=== PATIENT | female | born 1950 | race Caucasian/White ===

== ENCOUNTER 2022-08-12 18:04 | Inpatient (IN) | payer BC ==
[~2022-08-12] VITALS: Ht 172.7 cm; Wt 88.5 kg
[2022-08-12 18:05] VITALS: BP_SYST 134
[2022-08-12] MEDS ORDERED: ALBUTEROL SULFATE 0.083% 2.5 MG/3 ML VIAL.NEB INH ONE ×2 (18:15→21:15)
[2022-08-12] MEDS ORDERED: ACETAMINOPHEN 325 MG TABLET PO ONE (18:15)
[2022-08-12] MEDS ORDERED: IPRATROPIUM BROM 0.5 MG/2.5 ML VIAL.NEB (ATROVENT) INH ONE (18:15)
[2022-08-12 19:02] LABS: BASOPHILS % (AUTO) 0.2 % (0.0-2.0); EOSINOPHILS # (AUTO) 0.1 K/uL (0.0-0.4); EOSINOPHILS % (AUTO) 1.3 % (0.0-4.0); HEMATOCRIT 47.6 % (36-48); HEMOGLOBIN 16.1 g/dL (12.0-16.0); LYMPHOCYTES # (AUTO) 1.2 K/uL (1.0-5.5); LYMPHOCYTES % (AUTO) 20.6 % (20.5-51.5); MEAN CORPUSCULAR HEMOGLOBIN 32 pg (27-31); MEAN CORPUSCULAR HGB CONC 34 % (32-36); MEAN CORPUSCULAR VOLUME 94 fL (79.0-98.0); MONOCYTES # (AUTO) 0.9 K/uL (0.0-1.0); MONOCYTES % (AUTO) 14.8 % (1.7-9.3); NEUTROPHILS # (AUTO) 3.7 K/uL (1.8-7.7); NEUTROPHILS % (AUTO) 63.1 % (40.0-70.0); PLATELET COUNT (AUTO) 241 K/uL (130-430); RED BLOOD CELL COUNT(AUTO) 5.06 MIL/uL (4.2-6.2); RED CELL DISTRIBUTION WIDTH 14.9 % (9.0-15.0); WHITE BLOOD COUNT (AUTO) 5.8 K/uL (4.8-10.8)
[2022-08-12 20:06] LABS: ANION GAP 11 (5-15); CALCIUM 9.4 mg/dL (8.4-11.0); CHLORIDE 99 mmol/L (98-107); CREATININE 0.75 mg/dL (0.55-1.30); GLUCOSE 83 mg/dL (70-99); UREA NITROGEN, BLOOD 11 mg/dL (8-21)
[2022-08-12 20:13] LABS: ALANINE AMINOTRANSFERASE 22 U/L (12-78); ALBUMIN 2.6 g/dL (3.4-4.8); ASPARTATE AMINOTRANSFERASE 41 U/L (10-37); TOTAL BILIRUBIN 0.6 mg/dL (0.0-1.0)
[2022-08-12] MEDS ORDERED: methylPREDNISolone SOD SUCC/PF 62.5 MG/ML VIAL IM ONE (21:15)
[2022-08-12] MEDS ORDERED: KETOROLAC TROMETHAMINE 30 MG VIAL IVP ONE (21:45)
[2022-08-12 22:38] LABS: BILIRUBIN,URINE NEGATIVE (NEGATIVE); CLARITY/URINE SL CLOUDY (CLEAR); COLOR,URINE YELLOW (YELLOW); GLUCOSE,URINE NEGATIVE (NEGATIVE); KETONES,URINE 1+ (NEGATIVE); LEUKOCYTE ESTERASE ,URINE 1+ (NEGATIVE); NITRITE, URINE POSITIVE (NEGATIVE); PROTEIN URINE TRACE (NEGATIVE)
[2022-08-12 22:48] LABS: BLOOD, URINE TRACE (NEGATIVE)
[2022-08-12 22:51] LABS: BACTERIA,URINE MANY /HPF (None Seen); WBC,URINE >100 /HPF (0-3)
[2022-08-12] MEDS ORDERED: NACL 0.9% 1,000 ML IV ONE (23:00)
[2022-08-12] MEDS ORDERED: AMLO5TAB4 PO (23:27)
[2022-08-12] MEDS ORDERED: NEU300 PO (23:27)
[2022-08-12] MEDS ORDERED: NAPR-688 PO (23:27)
[2022-08-13 00:02] VITALS: BP_SYST 111
[2022-08-13 00:38] VITALS: BP_SYST 134
[2022-08-13] MEDS ORDERED: MUPIROCIN 2% TOPICAL OINTMENT 22 GM NS PRN (06:45)
[2022-08-13] MEDS ORDERED: ONDANSETRON HCL 4 MG/2 ML VIAL IVP PRN (06:45)
[2022-08-13] MEDS ORDERED: MAGNESIUM SULFATE 50 ML IV PRN (06:45)
[2022-08-13] MEDS ORDERED: MORPHINE 2 MG/ML INJ. SYRINGE IVP PRN ×2 (06:45)
[2022-08-13] MEDS ORDERED: ACETAMINOPHEN 325 MG TABLET PO PRN ×2 (06:45→07:00)
[2022-08-13] MEDS ORDERED: POTASSIUM CHLORIDE 20 MEQ TAB.PRT.SR PO PRN (06:45)
[2022-08-13] MEDS ORDERED: LORazepam 2 MG/ML VIAL IVP PRN (06:45)
[2022-08-13] MEDS ORDERED: DOCUSATE SODIUM 100 MG CAPSULE PO PRN (06:45)
[2022-08-13] MEDS ORDERED: NALOXONE HCL 0.4 MG/ML AMP (NARCAN) IVP PRN ×2 (06:45)
[2022-08-13] MEDS: IPRATROPIUM BROM 0.5 MG/2.5 ML VIAL.NEB (ATROVENT) INH SCH ×5 (07:00→23:36)
[2022-08-13 08:00] VITALS: BP_SYST 110
[2022-08-13] MEDS ORDERED: GABAPENTIN 300 MG CAPSULE PO SCH (09:00)
[2022-08-13] MEDS: amLODIPine BESYLATE 5 MG TABLET PO SCH (10:09)
[2022-08-13] MEDS: cefTRIAXone 1 GM in D5W 50 ML IV SCH (10:50)
[2022-08-13] MEDS: AZITHROMYCIN 500 MG in NS 250 ML IV SCH (10:57)
[2022-08-13 12:00] VITALS: BP_SYST 119
[2022-08-13] MEDS: methylPREDNISolone SOD SUCC/PF 62.5 MG/ML VIAL IVP SCH ×2 (15:01→21:26)
[2022-08-13 17:26] VITALS: BP_SYST 127
[2022-08-13 17:33] LABS: BARBITURATE, URINE NEGATIVE (NEG <=200); BENZODIAZEPINE, URINE NEGATIVE (NEG <=150); CANNABINOID, URINE NEGATIVE (NEG <=50); COCAINE, URINE NEGATIVE (NEG <=150); METHAMPHETAMINES SCREEN,URINE NEGATIVE (NEG <=500); OPIATE, URINE NEGATIVE (NEG <=100); PHENCYCLIDINE SCREEN,URINE NEGATIVE (NEG <=25); UR TRICYCLIC ANTIDEPRESSANTS NEGATIVE (NEG <=300); URINE AMPHETAMINE NEGATIVE (NEG <=500); URINE METHADONE NEGATIVE (NEG <=200); URINE OXYCODONE SCREEN NEGATIVE (NEG <=100); URINE PROPOXYPHENE SCREEN NEGATIVE (NEG <=300)
[2022-08-13 19:50] VITALS: BP_SYST 110
[2022-08-13] MEDS: ALBUTEROL SULFATE 0.083% 2.5 MG/3 ML VIAL.NEB INH PRN (20:01)
[2022-08-14 00:18] VITALS: BP_SYST 105
[2022-08-14] MEDS: ALBUTEROL SULFATE 0.083% 2.5 MG/3 ML VIAL.NEB INH PRN (03:01)
[2022-08-14] MEDS: IPRATROPIUM BROM 0.5 MG/2.5 ML VIAL.NEB (ATROVENT) INH SCH ×4 (03:02→14:44)
[2022-08-14] MEDS: methylPREDNISolone SOD SUCC/PF 62.5 MG/ML VIAL IVP SCH ×3 (06:33→22:30)
[2022-08-14 07:53] LABS: BASOPHILS % (AUTO) 0.1 % (0.0-2.0); HEMATOCRIT 41.2 % (36-48); LYMPHOCYTES # (AUTO) 0.5 K/uL (1.0-5.5); LYMPHOCYTES % (AUTO) 6.9 % (20.5-51.5); MEAN CORPUSCULAR HEMOGLOBIN 32 pg (27-31); MEAN CORPUSCULAR HGB CONC 34 % (32-36); MEAN CORPUSCULAR VOLUME 94 fL (79.0-98.0); MONOCYTES # (AUTO) 0.5 K/uL (0.0-1.0); MONOCYTES % (AUTO) 6.5 % (1.7-9.3); NEUTROPHILS # (AUTO) 6.5 K/uL (1.8-7.7); NEUTROPHILS % (AUTO) 86.5 % (40.0-70.0); PLATELET COUNT (AUTO) 267 K/uL (130-430); RED BLOOD CELL COUNT(AUTO) 4.37 MIL/uL (4.2-6.2); RED CELL DISTRIBUTION WIDTH 14.8 % (9.0-15.0)
[2022-08-14 07:56] LABS: ANION GAP 8 (5-15); CALCIUM 9.2 mg/dL (8.4-11.0); CHLORIDE 102 mmol/L (98-107); CREATININE 0.62 mg/dL (0.55-1.30); GLUCOSE 150 mg/dL (70-99); UREA NITROGEN, BLOOD 12 mg/dL (8-21)
[2022-08-14 08:00] VITALS: BP_SYST 106
[2022-08-14] MEDS: cefTRIAXone 1 GM in D5W 50 ML IV SCH (08:41)
[2022-08-14 09:21] LABS: WHITE BLOOD COUNT (AUTO) 7.5 K/uL (4.8-10.8)
[2022-08-14] MEDS: ENOXAPARIN SODIUM 40 MG/0.4 ML SYRINGE SUBCUT SCH (09:46)
[2022-08-14] MEDS: amLODIPine BESYLATE 5 MG TABLET PO SCH (09:46)
[2022-08-14 09:49] VITALS: BP_SYST 114
[2022-08-14 11:39] VITALS: BP_SYST 116
[2022-08-14] MEDS: AZITHROMYCIN 500 MG in NS 250 ML IV SCH (13:16)
[2022-08-14] MEDS ORDERED: IPRATROPIUM BROM 0.5 MG/2.5 ML VIAL.NEB (ATROVENT) INH PRN (15:00)
[2022-08-14 17:00] VITALS: BP_SYST 110
[2022-08-14 20:00] VITALS: BP_SYST 114
[2022-08-15] VITALS: BP_SYST 108; BP_SYST 126
[2022-08-15] MEDS: methylPREDNISolone SOD SUCC/PF 62.5 MG/ML VIAL IVP SCH ×2 (06:02→13:31)
[2022-08-15 07:15] LABS: HEMATOCRIT 43.8 % (36-48); HEMOGLOBIN 14.8 g/dL (12.0-16.0); LYMPHOCYTES # (AUTO) 0.6 K/uL (1.0-5.5); LYMPHOCYTES % (AUTO) 6.7 % (20.5-51.5); MEAN CORPUSCULAR HEMOGLOBIN 32 pg (27-31); MEAN CORPUSCULAR HGB CONC 34 % (32-36); MEAN CORPUSCULAR VOLUME 94 fL (79.0-98.0); MONOCYTES # (AUTO) 0.6 K/uL (0.0-1.0); MONOCYTES % (AUTO) 6.7 % (1.7-9.3); NEUTROPHILS # (AUTO) 8.1 K/uL (1.8-7.7); NEUTROPHILS % (AUTO) 86.6 % (40.0-70.0); PLATELET COUNT (AUTO) 270 K/uL (130-430); RED BLOOD CELL COUNT(AUTO) 4.66 MIL/uL (4.2-6.2); RED CELL DISTRIBUTION WIDTH 15.4 % (9.0-15.0)
[2022-08-15 07:19] LABS: ANION GAP 6 (5-15); CHLORIDE 102 mmol/L (98-107); CREATININE 0.64 mg/dL (0.55-1.30); GLUCOSE 131 mg/dL (70-99); UREA NITROGEN, BLOOD 13 mg/dL (8-21)
[2022-08-15 07:49] LABS: WHITE BLOOD COUNT (AUTO) 9.4 K/uL (4.8-10.8)
[2022-08-15 08:00] VITALS: BP_SYST 122
[2022-08-15] MEDS: cefTRIAXone 1 GM in D5W 50 ML IV SCH (08:39)
[2022-08-15] MEDS: ENOXAPARIN SODIUM 40 MG/0.4 ML SYRINGE SUBCUT SCH (09:15)
[2022-08-15] MEDS: amLODIPine BESYLATE 5 MG TABLET PO SCH (09:15)
[2022-08-15] MEDS: AZITHROMYCIN 500 MG in NS 250 ML IV SCH (09:21)
[2022-08-15] MEDS ORDERED: PRED20TA PO (10:17)
[2022-08-15] MEDS ORDERED: LEVO-62 PO (11:22)
[2022-08-15 11:45] VITALS: BP_SYST 123
[2022-08-15 14:02] VITALS: BP_SYST 132
[2022-08-16 09:06] LABS: RA LATEX TURBID 11.9 IU/mL (<14.0)
[2022-08-17 14:06] LABS: ANTI-SMOOTH MUSCLE AB 11 Units (0-19)
[2022-08-18 08:06] LABS: COCCIDIOIDES AB IGG 1.2 IV (<=0.9); COCCIDIOIDES AB IGM 0.5 IV (<=0.9)
[2022-08-18 17:07] LABS: ANTI NUCLEAR AB WITH REFLEX Negative (Negative)
== END 2022-08-15 23:30 | disposition home health service (06) | DRG 91 ==
LOC: SED 18:04 → STU 22:53
PROVIDERS: ADMIT Family Medicine; ATTEND Family Medicine
DX: G92.8 Other toxic encephalopathy (principal); J18.9 Pneumonia, unspecified organism; J96.01 Acute respiratory failure with hypoxia; J44.0 Chronic obstructive pulmonary disease with (acute) lower respiratory infection; E44.0 Moderate protein-calorie malnutrition; J44.1 Chronic obstructive pulmonary disease with (acute) exacerbation; T50.915A Adverse effect of multiple unspecified drugs, medicaments and biological substances, initial encounter; R41.82 Altered mental status, unspecified; F41.9 Anxiety disorder, unspecified; Z20.822 Contact with and (suspected) exposure to COVID-19; F17.200 Nicotine dependence, unspecified, uncomplicated; I10 Essential (primary) hypertension; G62.9 Polyneuropathy, unspecified; Z79.899 Other long term (current) drug therapy; Z68.29 Body mass index [BMI] 29.0-29.9, adult; Y92.89 Other specified places as the place of occurrence of the external cause
CPT/HCPCS: 36415; 36600; 70450-TC; 71045; 71250-TC; 76376; 80048; 80053; 80307; 81000; 82803; 83516; 83605; 83735; 83880; 84484; 85025; 85651-TC; 86038; 86431; 86480; 86635; 87040; 87086; 93005; 94640; 94760; 96372; 96374; 99285; G0378; J0456; J0696; J1650; J1885; J1956; J2930; J7050; J7060; J7613